=== PATIENT | female | born 1985 | race Caucasian/White ===

== ENCOUNTER 2021-12-18 18:49 | Emergency (ER) | payer BC, SELFPAY ==
[2021-12-18 19:09] VITALS: BP 149/84; PULSE 72; RESP 16; TEMP 36.7; O2SAT 100
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
[2021-12-18] MEDS: ketorolac 60 mg/2 mL INJ IM (22:06)
[2021-12-18 22:19] VITALS: BP 134/81; PULSE 75; RESP 22; O2SAT 100
[2021-12-18 23:15] VITALS: BP 127/70; PULSE 77; RESP 18; O2SAT 97
[2021-12-18] MEDS: oxyCODONE-APAP 5-325 mg Tablet 1 TAB PO (23:38)
[2021-12-18 23:41] VITALS: BP 128/81; PULSE 75; RESP 18; O2SAT 98
== END 2021-12-18 23:42 | disposition home or self-care (01) ==
PROVIDERS: Emergency Provider Family Medicine
DX: S13.4XXA Sprain of ligaments of cervical spine, initial encounter (principal); S54.01XA Injury of ulnar nerve at forearm level, right arm, initial encounter; S40.012A Contusion of left shoulder, initial encounter; S50.311A Abrasion of right elbow, initial encounter; S90.511A Abrasion, right ankle, initial encounter; S70.02XA Contusion of left hip, initial encounter; S09.8XXA Other specified injuries of head, initial encounter; V49.9XXA Car occupant (driver) (passenger) injured in unspecified traffic accident, initial encounter
CPT/HCPCS: 70450; 71046; 72125; 73030; 73060; 73502; 73503; 81025; 96372; 99285; J1885

== ENCOUNTER → 2022-10-10 11:08 | Outpatient (BNVA) | payer OTHER, SELFPAY | PROVIDERS: PCP Nurse Practitioner Family; Visit Provider Nurse Practitioner Family | DX: J02.9 Acute pharyngitis, unspecified (principal) | CPT/HCPCS: 87880 ==